=== PATIENT | female | born 1950 | race Asian ===

== ENCOUNTER 2018-05-10 10:54 | Inpatient (IN) | payer OTHER ==
[~2018-05-10] VITALS: Ht 149.9 cm; Wt 44.9 kg
[2018-05-10 11:38] VITALS: BP 113/83
--- NOTE | 2018-05-10 11:46 | NUR ---
pt lobby with steady gait to wait available room.
--- NOTE | 2018-05-10 11:47 | NUR ---
UA sample collected
--- NOTE | 2018-05-10 13:08 | NUR ---
PT AMBULATES TO BED 8
--- NOTE | 2018-05-10 13:12 | NUR ---
bib son and with c/o llq abdomen pain radiating to throat X 3 WK. Patient also reports "burping a lot". Last bm 3 days ago. Patient also report of anxiety and intermittent left side numbness. seen here on 04/20/18. ct done. hx--hypertension and GERD. DENIES N/V/D; SKIN IS PINK/WARM/DRY; AAOX4 WITH EVEN AND STEADY GAIT; LUNGS CLEAR BL. PT DENIES ANY FEVER, CP, SOB, OR COUGH AT THIS TIME; PATIENT STATES PAIN OF 8/10 AT THIS TIME. PATIENT POSITIONED FOR COMFORT; HOB ELEVATED; BEDRAILS UP X2; BED DOWN. ER MD MADE AWARE OF PT STATUS. Addendum: 05/10/18 at 1903 by [email or web address] MED : LEVOTHYROXIN 100 MCQ 1 TAB X AC.
[2018-05-10] MEDS ORDERED: NACL 0.9% 1,000 ML IV SCH (14:33)
[2018-05-10] MEDS ORDERED: NACL 0.9% 1,000 ML IV ONE (14:33)
[2018-05-10] MEDS ORDERED: KETOROLAC 15 MG/ML VIAL IVP ONE (14:35)
[2018-05-10] MEDS ORDERED: METOCLOPRAMIDE 10 MG/2 ML INJ VIAL IVP ONE (14:35)
[2018-05-10] MEDS ORDERED: LACTULOSE 20 GM/30 ML UDC PO ONE (14:35)
--- NOTE | 2018-05-10 15:04 | NUR ---
LAB AT BEDSIDE
[2018-05-10 15:21] LABS: BASOPHILS # (AUTO) 0.1 K/uL (0.00-0.22); BASOPHILS % (AUTO) 1.5 % (0.0-2.0); EOSINOPHILS % (AUTO) 0.4 % (0.0-4.0); HEMOGLOBIN 12.6 g/dL (12.0-16.0); LYMPHOCYTES # (AUTO) 2.8 K/uL (2.5-16.5); LYMPHOCYTES % (AUTO) 50.4 % (20.5-51.1); MEAN CORPUSCULAR HEMOGLOBIN 32 pg (27-31); MEAN CORPUSCULAR HGB CONC 34 g/dL (33-37); MEAN CORPUSCULAR VOLUME 92.5 fL (80-94); MONOCYTES # (AUTO) 0.4 K/uL (0.8-1.0); MONOCYTES % (AUTO) 6.8 % (1.7-9.3); NEUTROPHILS # (AUTO) 2.2 K/uL (1.8-7.7); NEUTROPHILS % (AUTO) 40.9 % (42.2-75.2); PLATELET COUNT (AUTO) 356 K/uL (140-450); RED CELL DISTRIBUTION WIDTH 11.8 % (11.6-13.7); WHITE BLOOD COUNT (AUTO) 5.5 K/uL (4.8-10.8)
[2018-05-10 15:29] LABS: APPEARANCE,URINE HAZY (CLEAR); COLOR,URINE YELLOW (YELLOW)
[2018-05-10 15:30] LABS: BILIRUBIN,URINE NEGATIVE (NEGATIVE); BLOOD, URINE TRACE (NEGATIVE); LEUKOCYTE ESTERASE ,URINE 2+ (NEGATIVE); NITRITE, URINE NEGATIVE (NEGATIVE); PH,URINE 5.5 (5.0-9.0); UGLUCOSE NEGATIVE (NEGATIVE)
[2018-05-10 16:04] LABS: ACETONE, SERUM NEGATIVE (NEGATIVE)
[2018-05-10 16:05] LABS: POTASSIUM 4.5 mmol/L (3.5-5.1); SODIUM SERUM 128 mmol/L (136-145)
[2018-05-10 16:06] LABS: ANION GAP 9.1 (8-16); ASPARTATE AMINOTRANSFERASE 13 U/L (15-37); CARBON DIOXIDE 28.4 mmol/L (21-32); CHLORIDE 95 mmol/L (98-107); CREATININE 0.8 mg/dL (0.6-1.3); GFR ARICAN-AMERICAN 91 mL/min (>90); GLUCOSE 97 mg/dL (74-106); TOTAL BILIRUBIN 0.3 mg/dL (0.0-1.0); UREA NITROGEN, BLOOD 11 mg/dL (7-18)
[2018-05-10 16:07] LABS: ALBUMIN 3.8 g/dL (3.4-5.0); AMYLASE 52 U/L (25-115); LIPASE 168 U/L (73-393)
--- NOTE | 2018-05-10 16:20 | NUR ---
RECEIVED BEDSIDE REPORT FROM ER NURSE. PATIENT IS AWAKE, ALERT AND ORIENTED X4. SON AND AT BEDSIDE. PATIENT SPEAKS A LITTLE MAORI, PRIMARY LANGUAGE IS [place]AR[place]. PATIENTS GAIT IS STEADY. SKIN IN INTACT. IV ON L HAND 22G INFUSING NS AT 60. CLEAN, DRY AND INTACT. BOWEL SOUNDS ARE HYPERACTIVE. BED IN LOW POSITION.CALL LIGHT WITHIN REACH. TELE MONITOR IN PLACE. WILL CONTINUE TO MONITOR THE PATIENT.
[2018-05-10 16:22] LABS: RBC,URINE 0-5 (RARE) /HPF (0-5); WBC,URINE 0-5 (RARE) /HPF (0-5)
[2018-05-10] MEDS: NACL 0.9% 1,000 ML IV SCH (17:24)
[2018-05-10] MEDS ORDERED: MORPHINE SULFATE 2 MG/ML SYR IVP PRN (17:25)
[2018-05-10] MEDS ORDERED: HYDROcodone/APAP 7.5/325 MG 1 TAB PO PRN (17:25)
[2018-05-10] MEDS ORDERED: ACETAMINOPHEN 325 MG TAB PO PRN (17:25)
[2018-05-10] MEDS ORDERED: DOCUSATE SODIUM 100 MG GELCAP PO PRN (17:25)
[2018-05-10] MEDS ORDERED: ONDANSETRON 4 MG/2 ML VIAL IM/IVP PRN (17:25)
[2018-05-10] MEDS ORDERED: ALPRAZolam 0.5 MG TAB PO SCH (18:40)
--- NOTE | 2018-05-10 18:40 | NUR ---
Patient will be admitted to care of DR ROLLINS. Admited to TELE. Will go to [facility]. Belongings list completed. Report to JERMAINE MATA.
[2018-05-10 18:50] LABS: PROTHROMBIN TIME 10.1 secs (10.8-13.4)
--- NOTE | 2018-05-10 19:15 | NUR ---
GAVE BEDSIDE REPORT TO [employer] SECURITY OFFICER NURSE. PATIENT IN STABLE CONDITION
--- NOTE | 2018-05-10 19:25 | NUR ---
RECEIVED PT FROM ERIC MATA PT AAOX4 AMBULATES WITH ASSISTAANT ON TELEMETRY SR, IV ON LEFT HAND INFUSING WELL PT RELATIVES AT BED SIDE AND ORIENTED TO THE FLOOR CALL LIGHT WITHIN REACH
[2018-05-10 19:45] VITALS: BP 111/54
[2018-05-10] MEDS ORDERED: ZOLPIDEM 5 MG TAB PO PRN (20:00)
[2018-05-10] MEDS ORDERED: BISACODYL 10 MG SUPP RC SCH (21:00)
[2018-05-10] MEDS ORDERED: LEVOFLOXACIN 500 MG/D5W PREMIX 100 ML IV SCH (22:00)
[2018-05-10] MEDS: metroNIDAZOLE 500 MG/NS PREMIX 100 ML IV SCH (22:07)
[2018-05-10 22:17] LABS: CHOL/HDL RATIO 4.7 (1-4.5); FREE T4 (FREE THYROXINE) 1.2 ng/dL (0.76-1.46); THYROID STIMULATING HORMONE 4.05 uIU/mL (0.34-3.74)
--- NOTE | 2018-05-10 22:30 | NUR ---
PT HAS A BIG BM PT VERBALIZED TO FEEL BETTER AFTER P DULCOLAX SUP GIVEN
[2018-05-11] VITALS: BP 136/50
--- NOTE | 2018-05-11 01:00 | NUR ---
PT RESTING ON BED DENIES ANY PAIN OR DISCOMFORT IV O;N LEFT HAND INFUSING WELL
--- NOTE | 2018-05-11 02:36 | NUR ---
PT SLEEPING WELL NOT SIGN OF LPAIN OR DISTRESS NOTED AT THIS TIME
[2018-05-11] MEDS: metroNIDAZOLE 500 MG/NS PREMIX 100 ML IV SCH ×2 (04:39→14:18)
[2018-05-11] MEDS: NACL 0.9% 1,000 ML IV SCH (04:39)
--- NOTE | 2018-05-11 05:01 | NUR ---
PT AMBULATES TO THE RESTROOM VIDING WELL NOT DISTRESS NOTED IV ON LEFT HAND INFUSING WELL
[2018-05-11 06:22] LABS: T4 (THYROXINE) 8.3 ug/dL (4.5-12.0)
[2018-05-11] MEDS ORDERED: LEVOTHYROXINE 0.1 MG TAB PO SCH (06:30)
--- NOTE | 2018-05-11 07:00 | NUR ---
PT AAOX4 VERBALIZED TO FEEL BETTER DENIES ANY PAIN ,IV O;N LEFT HAND INFUSING WELL DENIES ANY PAIN PT WILL BE ENDORSED TO DAY SHIFT NURSE FOR CONTINUITY OF CARE
--- NOTE | 2018-05-11 07:10 | NUR ---
RECEIVED PT FROM PM NURSE AT THE BEDSIDE. PT LYING ON BED. FAMILY AT THE BEDSIDE. NS INFUSING WELL. NO SIGN OF DISTRESS NOTED. PT ASKING IF SHE WAS GOING HOME. INFORMED THAT DOC WILL LET HER KNOW WHILE THEY MAKE ROUND.PT VERBALIZED UNDERSTANDING. CALL LIGHT WITHIN REACH. WILL CONTINUE TO MONITOR PT.
[2018-05-11] MEDS ORDERED: DEXT 5% /NACL 0.9% 1,000 ML IV SCH (07:20)
[2018-05-11 07:37] LABS: BASOPHILS % (AUTO) 0.4 % (0.0-2.0); EOSINOPHILS % (AUTO) 0.5 % (0.0-4.0); HEMATOCRIT 34.3 % (36-48); LYMPHOCYTES # (AUTO) 2.5 K/uL (2.5-16.5); LYMPHOCYTES % (AUTO) 52.5 % (20.5-51.1); MEAN CORPUSCULAR HEMOGLOBIN 33 pg (27-31); MEAN CORPUSCULAR HGB CONC 35 g/dL (33-37); MEAN CORPUSCULAR VOLUME 92.6 fL (80-94); MONOCYTES # (AUTO) 0.4 K/uL (0.8-1.0); MONOCYTES % (AUTO) 8.6 % (1.7-9.3); NEUTROPHILS # (AUTO) 1.8 K/uL (1.8-7.7); PLATELET COUNT (AUTO) 348 K/uL (140-450); RED BLOOD CELL COUNT(AUTO) 3.71 MIL/uL (4.20-5.40); RED CELL DISTRIBUTION WIDTH 11.7 % (11.6-13.7); WHITE BLOOD COUNT (AUTO) 4.7 K/uL (4.8-10.8)
[2018-05-11 08:00] VITALS: BP 105/40
[2018-05-11] MEDS ORDERED: LACTOBACILLUS RHAMNOSUS GG 1 EACH CAP PO SCH ×2 (08:00→09:00)
[2018-05-11 08:17] LABS: ANION GAP 11.2 (8-16); CARBON DIOXIDE 26.5 mmol/L (21-32); CREATININE 0.8 mg/dL (0.6-1.3); POTASSIUM 4.7 mmol/L (3.5-5.1)
--- NOTE | 2018-05-11 08:48 | NUR ---
PATIENT HAS BEEN SCREENED AND CATEGORIZED HIGH NUTRITION RISK. PATIENT WILL BE SEEN WITHIN 1-2 DAYS OF ADMISSION. 05/11/18 05/12/[address]
[2018-05-11] MEDS ORDERED: ESCITALOPRAM 20 MG TAB PO SCH (09:00)
--- NOTE | 2018-05-11 09:00 | NUR ---
SPOKE WITH SVITLANA FROM [facility] AND STATED THAT HE WILL GIVE US A CALL TO CONFIRM THE TIME THEY CAN PICK THE PT.
--- NOTE | 2018-05-11 09:15 | NUR ---
ADMINISTERED MEDS ORDERED TO PT. TOLERATED WELL. PT ON NPO, STATES IS VERY HUNGRY. EDUCATED HER THAT SHE CANNOT EAT UNTILL DOCTOR PUTS ORDER FOR THE DIET. COULD CAUSE MORE PROBLEM TO HER STOMACH. AT BEDSIDE. OFFERED ICE CHIPS. PT STABLE AT THIS TIME. WILL CONTINUE TO MONITOR PT.
[2018-05-11] MEDS ORDERED: SODIUM CHLORIDE 1 GM TAB PO SCH (10:30)
[2018-05-11] MEDS ORDERED: SODIUM PHOSPHATE 118 ML ENEM RC SCH (10:30)
--- NOTE | 2018-05-11 11:12 | NUR ---
ADMINISTERED FLEET ENEMA TO PT ORDERED. PT TOLERATED WELL. PT ASKED TO HOLD MUCH SHE CAN BEFORE GOING TO RESTROOM. PT COULDN'T HOLD. WENT TO RESTROOM. RESIDENT NOTIFIED.
--- NOTE | 2018-05-11 14:15 | NUR ---
ADMINISTERED MEDS TO PT ORDERED. PT SITTING ON BED, EATING FOOD. AT BEDSIDE. NO SIGN OF DISTRESS. WILL CONTINUE TO MONITOR PT.
--- NOTE | 2018-05-11 14:23 | NUR ---
05/11/18 RD INITIAL ASSESSMENT COMPLETED PLEASE REFER TO NUTRITION ASSESSMENT UNDER CARE ACTIVITY FOR ESTIMATED NUTRITIONAL NEEDS. 1. IF/WHEN MEDICALLY APPROPRIATE ADVANCE DIET TO BLAND DIET 2. PROVIDED NUTRITION EDUCATION 3. RD TO FOLLOW-UP 3-5 DAYS, MODERATE RISK CHRIS SAMANO, RD
[2018-05-11] MEDS ORDERED: DOCU-299 PO (14:50)
--- NOTE | 2018-05-11 15:00 | NUR ---
INFORMED PT THAT SHE IS GOING TO GET DISCHARGED. WILL CONTINUE TO WORK ON HER DISCHARGE PAPER. PT VERBALISED UNDERSTANDING.
[2018-05-11 16:00] VITALS: BP 105/48
[2018-05-11] MEDS ORDERED: LEVO750T2 PO (16:17)
[2018-05-11] MEDS ORDERED: LACT10CA PO (16:18)
--- NOTE | 2018-05-11 17:00 | NUR ---
PT LEFT THE HOSPITAL WITH HER . PT STABLE AT TIME OF DISCHARGE. TOOK ALL HER BELONGINGS. OLIVIA MANDEL WHEELED HER OUTSIDE OF THE HOSPITAL.
[2018-05-11] MEDS ORDERED: LEVOFLOXACIN 250 MG/D5 PREMIX 50 ML IV SCH (22:00)
== END 2018-05-11 17:00 | disposition home or self-care (01) | DRG 389 ==
LOC: MED 10:54 → MTU 17:16
PROVIDERS: ADMIT General Practice; ATTEND General Practice
DX: K56.7 Ileus, unspecified (principal); N39.0 Urinary tract infection, site not specified; E87.1 Hypo-osmolality and hyponatremia; K59.09 Other constipation; F41.9 Anxiety disorder, unspecified; E87.8 Other disorders of electrolyte and fluid balance, not elsewhere classified; G43.909 Migraine, unspecified, not intractable, without status migrainosus; K21.9 Gastro-esophageal reflux disease without esophagitis; I10 Essential (primary) hypertension; E86.0 Dehydration; K38.1 Appendicular concretions; E03.9 Hypothyroidism, unspecified; K52.9 Noninfective gastroenteritis and colitis, unspecified
CPT/HCPCS: 36415; 71045; 74250; 80048; 80053; 81001; 82009; 82150; 83036; 83690; 83735; 83880; 84100; 84436; 84439; 84443; 84479; 85025; 85610; 85730; 87081; 87086; 93005; 93970; J0696; J1885; J1956; J2765; J3490; J7030; J7060; Q0092